=== PATIENT | male | born 1950 | race Caucasian/White ===

== ENCOUNTER → 2019-02-04 | Outpatient (CLI) | payer MEDICARE, BC ==
[~2019-02-04] MED LIST: Aspir 8181 MG PO; Azor 10-20 MG1 EACH; BUSP5 PO; LORA10 PO; MELO7.5 PO; PSEU120ER PO; TAMS.4ER PO
== END | disposition home or self-care (01) ==
LOC: PLD 14:58 → LAB SHORT 14:58
DX: D48.5 Neoplasm of uncertain behavior of skin (principal)
CPT/HCPCS: 88304

== ENCOUNTER 2019-03-30 07:24 | Emergency (ER) | payer MEDICARE, BC ==
[~2019-03-30] VITALS: Ht 175.3 cm; Wt 104.3 kg
[2019-03-30] MEDS ORDERED: Prinivil10 MG PO (07:47)
== END 2019-03-30 09:19 | disposition home or self-care (01) ==
LOC: ER 07:24
DX: S93.602A Unspecified sprain of left foot, initial encounter (principal); S93.601A Unspecified sprain of right foot, initial encounter; W11.XXXA Fall on and from ladder, initial encounter; Z79.899 Other long term (current) drug therapy; Z79.82 Long term (current) use of aspirin
CPT/HCPCS: 73630; 99283-25

== ENCOUNTER 2021-05-26 06:10 | Day surgery (SDC) | payer MEDICARE, BC ==
[~2021-05-26] VITALS: Ht 175.3 cm; Wt 107.0 kg
[~2021-05-26 06:10] MED LIST changes: +Prinivil10 MG PO
[2021-05-26] MEDS ORDERED: LORA10ER PO (06:50)
--- NOTE | 2021-05-26 06:54 | NUR ---
05/26/21 0654 Gaudencio Liz CHARTING [place] [id number] PLEDGET IN AT [phone]
== END 2021-05-26 08:30 | disposition home or self-care (01) ==
LOC: ORSCSDS 06:10
PROVIDERS: Ophthalmology
PROC: 08RJ3JZ Replacement of Right Lens with Synthetic Substitute, Percutaneous Approach (ICD-10-PCS; principal; 2021-05-26 07:30)
DX: H25.11 Age-related nuclear cataract, right eye (principal); Z79.899 Other long term (current) drug therapy; E66.9 Obesity, unspecified; Z68.34 Body mass index [BMI] 34.0-34.9, adult
CPT/HCPCS: J2001; J2250; J3010; J3301; J7040; V2632

== ENCOUNTER → 2021-06-02 | Outpatient (CLI) | payer MEDICARE, BC ==
[~2021-06-02] MED LIST changes: +LORA10ER PO
== END | disposition home or self-care (01) ==
LOC: LAB 15:03 → LAB SHORT 15:03
DX: L57.0 Actinic keratosis (principal)
CPT/HCPCS: 88305

== ENCOUNTER 2021-07-07 06:20 | Day surgery (SDC) | payer MEDICARE, BC ==
[~2021-07-07] VITALS: Ht 175.3 cm; Wt 104.4 kg
--- NOTE | 2021-07-07 06:41 | NUR ---
07/07/21 0641 Marjan Becker TETRACAINE 0631 AND PLEDGET 0633 PLACED IN LEFT EYE BY [facility].TMG
== END 2021-07-07 08:07 | disposition home or self-care (01) ==
LOC: ORSCSDS 06:20
PROVIDERS: Ophthalmology
PROC: 08RK3JZ Replacement of Left Lens with Synthetic Substitute, Percutaneous Approach (ICD-10-PCS; principal; 2021-07-07 07:30)
DX: H25.12 Age-related nuclear cataract, left eye (principal); I10 Essential (primary) hypertension; E66.9 Obesity, unspecified; Z68.33 Body mass index [BMI] 33.0-33.9, adult; Z79.899 Other long term (current) drug therapy
CPT/HCPCS: A9270; J2001; J2250; J3010; J3301; J7040; V2632

== ENCOUNTER → 2022-03-28 | Outpatient (CLI) | payer MEDICARE, BC | END | disposition home or self-care (01) | LOC: PLD 12:22 → LAB SHORT 12:22 | DX: D18.01 Hemangioma of skin and subcutaneous tissue (principal); D22.61 Melanocytic nevi of right upper limb, including shoulder | CPT/HCPCS: 88305 ==

== ENCOUNTER 2024-01-12 04:40 | Emergency (ER) | payer MEDICARE, BC ==
[~2024-01-12] VITALS: Ht 175.3 cm; Wt 90.7 kg
[2024-01-12 05:00] VITALS: BP 134/79
[2024-01-12 05:01] LABS: BASOPHILS ABSOLUTE AUTO 0.01 K/mm3 (0.00-0.23); BASOPHILS PERCENT AUTO 0 % (0-2); EOSINOPHILS PERCENT AUTO 0 % (0-6); Hemoglobin 13.6 g/dL (13.5-17.5); IMMATURE GRAN ABSOLUTE AUTO 0.02 K/mm3 (0.00-0.10); IMMATURE GRAN PERCENT AUTO 0 % (0-1); LYMPHOCYTES ABSOLUTE AUTO 0.33 K/mm3 (0.84-5.20); LYMPHOCYTES PERCENT AUTO 4 % (21-46); MONOCYTES ABSOLUTE AUTO 0.52 K/mm3 (0.16-1.47); MONOCYTES PERCENT AUTO 6 % (4-13); Mean Corpuscular HGB 30.5 pg (26.0-34.0); Mean Corpuscular HGB Conc 34.9 g/dL (31.5-36.5); Mean Corpuscular Volume 87 fL (80-100); Mean Platelet Volume 9.8 fL (9.1-12.4); NEUTROPHILS ABSOLUTE AUTO 8.54 K/mm3 (1.96-9.15); NEUTROPHILS PERCENT AUTO 91 % (41-73); Platelet Count 159 K/mm3 (150-400); RDW Standard Deviation 41.9 fL (35.1-46.3); Red Blood Cell Count 4.46 M/mm3 (4.30-5.90); White Blood Cell Count 9.42 K/mm3 (4.00-11.30)
[2024-01-12] MEDS ORDERED: Ondansetron HCl 2 MG / ML 2ML Vial IV ONE (05:10)
[2024-01-12 05:15] VITALS: BP 133/84
[2024-01-12] MEDS ORDERED: Midazolam HCl 1MG / ML 2ML Vial IV ONE (05:15)
[2024-01-12 05:33] LABS: Albumin, Blood 4.3 g/dL (3.4-5.0); Albumin/Globulin Ratio 1.5 (0.8-1.8); Bilirubin, Total 0.8 mg/dL (0.1-1.0); Bun/Creatinine Ratio 30.2 (12.0-20.0); Calcium, Blood 9.5 mg/dL (8.5-10.1); Creatinine, Blood 0.86 mg/dL (0.60-1.20); Globulin, Blood 2.8 g/dL (2.2-4.0); Potassium, Blood 4.8 mmol/L (3.5-5.5); Total Protein, Blood 7.1 g/dL (6.4-8.2)
[2024-01-12 05:52] LABS: BASOPHILS PERCENT MAN 0 % (0-2); EOSINOPHILS ABSOLUTE MAN 0.09 K/mm3 (0.00-0.68); EOSINOPHILS PERCENT MAN 1 % (0-6); LYMPHOCYTES ABSOLUTE MAN 0.28 K/mm3 (0.84-5.20); LYMPHOCYTES PERCENT MAN 3 % (21-46); MONOCYTES ABSOLUTE MAN 0.28 K/mm3 (0.16-1.47); MONOCYTES PERCENT MAN 3 % (4-13); NEUTROPHILS ABSOLUTE MAN 8.76 K/mm3 (1.96-9.15); SEG NEUTROPHILS PERCENT MAN 93 % (41-73); TOTAL CELLS COUNTED 100
== END 2024-01-12 07:06 | disposition home or self-care (01) ==
LOC: ER 04:40
PROVIDERS: Emergency Medicine
DX: R11.2 Nausea with vomiting, unspecified (principal); Z91.030 Bee allergy status; Z79.899 Other long term (current) drug therapy
CPT/HCPCS: 80053; 83690; 85025; 93005; 93010; 96374; 96375; 99284-25; J2250; J2405